=== PATIENT | female | born 1990 | race Caucasian/White ===

== ENCOUNTER 2016-07-30 14:21 | Emergency (ER) | payer OTHER ==
--- NOTE | 2016-07-30 14:34 | ER Document Report ---
ED Medical Screen (RME) - General Stated Complaint: DIZZINESS Time seen by provider: 14:31 Information source: Patient Notes: 26-year-old female with 2 episodes of syncope today at 1 PM. Prior to passing out in the shower and then after she got out of the shower she got nauseated and felt very hot and was dizzy and lightheaded. Started her menses today. Through the endometriosis and PCOS. She was on her way to see the urgent care for fever blisters on the lower lip. Nausea for 2 weeks with vomiting for 3 days. Diarrhea today. I have greeted and performed a rapid initial assessment of this patient. A comprehensive ED assessment, evaluation of the patient, analysis of test results , and completion of the medical decision making process will be conducted by additional ED providers. TRAVEL OUTSIDE OF THE [place] IN LAST 30 DAYS: No - Related Data Allergies/Adverse Reactions: No Known Allergies Allergy (Verified 07/30/16 14:30) Past Medical History - Past Medical History Cardiac Medical History: Reports: Hx Heart Murmur Pulmonary Medical History: Reports: Hx Asthma, Hx Bronchitis, Hx Pneumonia Neurological Medical History: Reports: Hx Migraine Renal/ Medical History: Reports: Hx Kidney Stones Musculoskeltal Medical History: Reports Hx Musculoskeletal Deformity Psychiatric Medical History: Reports: Hx Anxiety, Hx Bipolar Disorder, Hx Depression Past Surgical History: Reports: Hx Tonsillectomy - Immunizations Immunizations up to date: No Hx Diphtheria, Pertussis, Tetanus Vaccination: No Physical Exam - Vital signs Vitals: Temp Pulse Resp BP Pulse Ox 98.3 F 83 16 128/73 H 99 07/30/16 14:07/30/16 14:07/30/16 14:07/30/16 14:07/30/16 14:26 Course - Vital Signs Vital signs: Temp Pulse Resp BP Pulse Ox 98.3 F 83 16 128/73 H 99 07/30/16 14:26 07/30/16 14:26 07/30/16 14:07/30/16 14:07/30/16 14:26
[2016-07-30 15:21] LABS: ABSOLUTE BASOPHILS # (AUTO) 0.1 10^3/uL (0.0-0.2); ABSOLUTE EOSINOPHILS # (AUTO) 0.3 10^3/uL (0.0-0.6); ABSOLUTE LYMPHOCYTES (AUTO) 2.7 10^3/uL (0.5-4.7); ABSOLUTE MONOCYTES (AUTO) 0.7 10^3/uL (0.1-1.4); ABSOLUTE NEUT (AUTO) 7.1 10^3/uL (1.7-8.2); BASOPHILS % (AUTO) 0.6 % (0-2); EOSINOPHILS % (AUTO) 2.7 % (0-6); HEMATOCRIT 42.3 % (36.0-47.0); HEMOGLOBIN 14.7 g/dL (12.0-15.5); HGB HCT DIFFERENCE 1.8; LYMPHOCYTES % (AUTO) 24.6 % (13-45); MEAN CORPUSCULAR HEMOGLOBIN 32.1 pg (27.0-33.4); MEAN CORPUSCULAR HGB CONC 34.8 g/dL (32.0-36.0); MEAN CORPUSCULAR VOLUME 92 fl (80-97); MONOCYTES % (AUTO) 6.7 % (3-13); RED BLOOD COUNT 4.58 10^6/uL (3.72-5.28); SEGMENTED NEUTROPHILS % (AUTO) 65.4 % (42-78); WHITE BLOOD COUNT 10.9 10^3/uL (4.0-10.5)
[2016-07-30 15:28] LABS: APPEARANCE,URINE SLIGHTLY-CLOUDY; BILIRUBIN,URINE NEGATIVE (NEGATIVE); GLUCOSE, URINE NEGATIVE (NEGATIVE); KETONES,URINE NEGATIVE (NEGATIVE); LEUKOCYTE ESTERASE,URINE NEGATIVE (NEGATIVE); NITRITE,URINE NEGATIVE (NEGATIVE); PROTEIN,URINE NEGATIVE (NEGATIVE); URINE SPECIFIC GRAVITY 1.018; UROBILINOGEN,URINE NEGATIVE mg/dL (<2.0)
[2016-07-30 15:42] LABS: ALANINE AMINOTRANSFERASE 28 U/L (9-52); ALBUMIN 4.7 g/dL (3.5-5.0); ALKALINE PHOSPHATASE 74 U/L (38-126); ANION GAP 12 (5-19); ASPARTATE AMINO TRANSFERASE 18 U/L (14-36); BILIRUBIN,TOTAL 0.5 mg/dL (0.2-1.3); BLOOD UREA NITROGEN 9 mg/dL (7-20); CALCIUM 10.1 mg/dL (8.4-10.2); CARBON DIOXIDE 27 mmol/L (22-30); CHLORIDE 103 mmol/L (98-107); CREATINE KINASE 56 U/L (30-135); CREATININE RESULT 0.66 mg/dL (0.52-1.25); GLUCOSE 92 mg/dL (75-110); POTASSIUM 4.7 mmol/L (3.6-5.0); SODIUM 142.1 mmol/L (137-145); TOTAL PROTEIN 7.7 g/dL (6.3-8.2)
[2016-07-30 15:58] LABS: CREATINE KINASE MB < 0.22 ng/mL (<4.55); TROPONIN I < 0.012 ng/mL
--- NOTE | 2016-07-30 17:34 | ER Document Report ---
ED General - General Chief Complaint: Syncope Stated Complaint: DIZZINESS Mode of Arrival: Ambulatory Information source: Patient Notes: 26-year-old female presents with complaints of dizziness and syncope. Patient notes she passed out twice. We'll times while standing. Patient notes she's been feeling ill for the past week and half, was diagnosed as the flu has been having nausea and vomiting with diarrhea. Patient denies any pain prior to this episode denies any shortness of breath chest pain currently. Patient denies any other concerns at this time except for fever blisters of her lower lip TRAVEL OUTSIDE OF THE [place] IN LAST 30 DAYS: No - HPI Onset: Just prior to arrival Onset/Duration: Sudden Quality of pain: Burning Severity: Mild Pain Level: 1 Associated symptoms: Other Exacerbated by: Denies Relieved by: Denies Similar symptoms previously: No Recently seen / treated by doctor: No - Related Data Allergies/Adverse Reactions: No Known Allergies Allergy (Verified 07/30/16 14:30) Past Medical History - General Information source: Patient - Social History Smoking Status: Current Every Day Smoker Cigarette use (# per day): Yes Chew tobacco use (# tins/day): No Smoking Education Provided: No Frequency of alcohol use: None Family History: CAD, Hyperlipidemia, Hypertension, Malignancy, Thyroid Disfunction Patient has suicidal ideation: No Patient has homicidal ideation: No - Past Medical History Cardiac Medical History: Reports: Hx Heart Murmur Pulmonary Medical History: Reports: Hx Asthma, Hx Bronchitis, Hx Pneumonia Neurological Medical History: Reports: Hx Migraine Renal/ Medical History: Reports: Hx Kidney Stones. Denies: Hx Peritoneal Dialysis Musculoskeltal Medical History: Reports Hx Musculoskeletal Deformity Psychiatric Medical History: Reports: Hx Anxiety, Hx Bipolar Disorder, Hx Depression Past Surgical History: Reports: Hx Tonsillectomy - Immunizations Immunizations up to date: No Hx Diphtheria, Pertussis, Tetanus Vaccination: No Review of Systems - Review of Systems Notes: REVIEW OF SYSTEMS: CONSTITUTIONAL : Denies fever, chills, or sweats. Denies recent illness. EENT: Lip pain CARDIOVASCULAR: Denies chest pain. Denies palpitations or racing or irregular heart beat. Denies ankle edema. RESPIRATORY: Denies cough, cold, or chest congestion. Denies shortness of breath, difficulty breathing, or wheezing. GASTROINTESTINAL: Denies abdominal pain or distention. Denies nausea, vomiting , or diarrhea. Denies blood in vomitus, stools, or per rectum. Denies black, tarry stools. Denies constipation. GENITOURINARY: Denies difficulty urinating, painful urination, burning, frequency, blood in urine, or discharge. FEMALE GENITOURINARY: Denies vaginal bleeding, heavy or abnormal periods, irregular periods. Denies vaginal discharge or odor. MUSCULOSKELETAL: Denies back or neck pain or stiffness. Denies joint pain or swelling. SKIN: Denies rash, lesions or sores. HEMATOLOGIC : Denies easy bruising or bleeding. LYMPHATIC: Denies swollen, enlarged glands. NEUROLOGICAL: Syncope PSYCHIATRIC: Denies anxiety or stress. Denies depression, suicidal ideation, or homicidal ideation. ALL OTHER SYSTEMS REVIEWED AND NEGATIVE. Dictation was performed using [employer] voice recognition software PHYSICAL EXAMINATION: GENERAL: Well-appearing, well-nourished and in no acute distress. HEAD: Atraumatic, normocephalic. EYES: Pupils equal round and reactive to light, extraocular movements intact, conjunctiva are normal. ENT: Lower lip swelling Nares patent, oropharynx clear without exudates. Moist mucous membranes. NECK: Normal range of motion, supple without lymphadenopathy LUNGS: Breath sounds clear to auscultation bilaterally and equal. No wheezes rales or rhonchi. HEART: Regular rate and rhythm without murmurs ABDOMEN: Soft, nontender, nondistended abdomen. No guarding, no rebound. No masses appreciated. Female : deferred Musculoskeletal: Mild right anterior thigh NEUROLOGICAL: Cranial nerves grossly intact. Normal speech, normal gait. Normal sensory, motor exams PSYCH: Normal mood, normal affect. SKIN: Warm, Dry, normal turgor, no rashes or lesions noted. Physical Exam - Vital signs Vitals: Temp Pulse Resp BP Pulse Ox 98.3 F 83 16 128/73 H 99 07/30/16 14:26 07/30/16 14:26 07/30/16 14:26 07/30/16 14:26 07/30/16 14:26 Course - Re-evaluation Re-evalutation: 07/30/16 17:31 patient was evaluated and is in no distress, lab work note no significant abnormality, patient will be given Valtrex for her fever blisters 07/30/16 17:33 After performing a Medical Screening Examination, I estimate there is LOW risk for INTRACRANIAL HEMORRHAGE, ISCHEMIC CVA, MALIGNANT DYSRHYTHMIA, ACUTE CORONARY SYNDROME, MENINGITIS, PULMONARY EMBOLISM, or SEPSIS thus I consider the discharge disposition reasonable. The patient and I have discussed the diagnosis and risks, and we agree with discharging home with close follow-up with the understanding that symptoms and presentations can change. We also discussed returning to the Emergency Department immediately if new or worsening symptoms occur. We have discussed the symptoms which are most concerning (e.g., changing or worsening pain, weakness, vomiting, fever) that necessitate immediate return. - Vital Signs Vital signs: Temp Pulse Resp BP Pulse Ox 98.3 F 83 16 128/73 H 99 07/30/16 14:26 07/30/16 14:26 07/30/16 14:26 07/30/16 14:26 07/30/16 14:26 - Laboratory Result Diagrams: 07/30/16 14:55 07/30/16 14:55 Laboratory results interpreted by me: 07/30/16 07/30/16 14:55 14:55 WBC 10.9 H Urine Blood MODERATE H - EKG Interpretation by [place] EKG shows normal: Sinus rhythm, [place], Intervals, QRS Complexes Discharge - Discharge Clinical Impression: Syncope and collapse, Fever blister Condition: Stable Disposition: HOME, SELF-CARE Instructions: Syncopal Episode ([facility]) Additional Instructions: Follow up with your physician tomorrow for further care or return to the ED IMMEDIATELY if symptoms worsen or new concerns occur Prescriptions: Lidocaine [Topicaine 5] 10 gm TP ASDIR PRN #1 gel..gram. PRN Reason: Valacyclovir HCl [Valtrex 500 Mg Tablet] 1,000 mg PO BID #20 tablet
[2016-07-30 18:28] VITALS: BP 128/72
--- NOTE | 2016-07-30 22:44 | EKG REPORT ---
SEVERITY:- NORMAL ECG - SINUS RHYTHM : Confirmed by: Delvin Schreiber 30-Jul-2016 22:43:24
== END 2016-07-30 18:25 | disposition home or self-care (01) ==
LOC: ER 14:21
DX: R55 Syncope and collapse (principal); B00.1 Herpesviral vesicular dermatitis; F17.210 Nicotine dependence, cigarettes, uncomplicated; J45.909 Unspecified asthma, uncomplicated
CPT/HCPCS: 36415; 80053; 81001; 82550; 82553; 84484; 84703; 85025; 93005; 93010; 99284

== ENCOUNTER 2016-09-03 02:21 | Emergency (ER) | payer OTHER, MEDICAID ==
--- NOTE | 2016-09-03 04:24 | ER Document Report ---
ED GI/ - General Chief Complaint: Abdominal Pain Stated Complaint: ABDOMINAL PAIN Time seen by provider: 04:20 Notes: Patient is a 26-year-old female, at 5 weeks gestation by last menstrual period, that comes emergency department for chief complaint of 2 days of intermittent right-sided abdominal pain in the midabdomen. She denies flank pain, vomiting, dysuria, vaginal discharge or bleeding, injury. She states she is very distended for only being 5 weeks along. She reports normal bowel movements. She states she is staying very hydrated. She is taking vitamins. She denies any medical history other than a spontaneous miscarriage with her second . TRAVEL OUTSIDE OF THE [place] IN LAST 30 DAYS: No - Related Data Allergies/Adverse Reactions: No Known Allergies Allergy (Verified 07/30/16 14:30) Past Medical History - General Information source: Patient - Social History Smoking Status: Never Smoker Frequency of alcohol use: None Drug Abuse: None Lives with: Family Family History: CAD, Hyperlipidemia, Hypertension, Malignancy, Thyroid Disfunction - Past Medical History Cardiac Medical History: Reports: Hx Heart Murmur Pulmonary Medical History: Reports: Hx Asthma, Hx Bronchitis, Hx Pneumonia Neurological Medical History: Reports: Hx Migraine Renal/ Medical History: Reports: Hx Kidney Stones. Denies: Hx Peritoneal Dialysis Musculoskeltal Medical History: Reports Hx Musculoskeletal Deformity Psychiatric Medical History: Reports: Hx Anxiety, Hx Bipolar Disorder, Hx Depression Past Surgical History: Reports: Hx Tonsillectomy - Immunizations Immunizations up to date: No Hx Diphtheria, Pertussis, Tetanus Vaccination: No Review of Systems - Review of Systems Constitutional: No symptoms reported EENT: No symptoms reported Cardiovascular: No symptoms reported Respiratory: No symptoms reported Gastrointestinal: See HPI Genitourinary: See HPI Female Genitourinary: See HPI Musculoskeletal: No symptoms reported Skin: No symptoms reported Hematologic/Lymphatic: No symptoms reported Neurological/Psychological: No symptoms reported Physical Exam - Vital signs Vitals: Temp Pulse Resp BP Pulse Ox 98.3 F 98 16 113/76 99 09/03/16 02:34 09/03/16 02:34 09/03/16 02:34 09/03/16 02:34 09/03/16 02:34 Interpretation: Normal - General General appearance: Appears well, Alert In distress: None - HEENT Head: Normocephalic, Atraumatic Eyes: Normal Pupils: PERRL - Respiratory Respiratory status: No respiratory distress Chest status: Nontender Breath sounds: Normal Chest palpation: Normal - Cardiovascular Rhythm: Regular Heart sounds: Normal auscultation Murmur: No - Abdominal Inspection: Normal Distension: Distended - Questionable mild distention Bowel sounds: Normal Tenderness: Nontender. No: Tender, Guarding Organomegaly: No organomegaly - Back Back: Normal, Nontender - Extremities General upper extremity: Normal inspection, Nontender, Normal color, Normal ROM , Normal temperature General lower extremity: Normal inspection, Nontender, Normal color, Normal ROM , Normal temperature, Normal weight bearing. No: Angel's sign - Neurological Neuro grossly intact: Yes Cognition: Normal Orientation: AAOx4 Madyson Coma Scale Eye Opening: Spontaneous Madyson Coma Scale Verbal: Oriented Madyson Coma Scale Motor: Obeys Commands Madyson Coma Scale Total: 15 Speech: Normal Motor strength normal: LUE, RUE, LLE, RLE Sensory: Normal - Psychological Associated symptoms: Normal affect, Normal mood - Skin Skin Temperature: Warm Skin Moisture: Dry Skin Color: Normal Course - Re-evaluation Re-evalutation: CBC unremarkable, urinalysis unremarkable, ultrasound showing gestational sac consistent with 5 weeks 1 day intrauterine , hCG is low and consistent. Patient with no vaginal bleeding, denies any current pain, denies any current symptoms. Patient given details, recommended having close follow- up of hCG lab testing, recommended follow up with COMPUTER SYSTEMS DESIGN ANALYST, discussed return precautions, patient states satisfaction and agreement. - Vital Signs Vital signs: Temp Pulse Resp BP Pulse Ox 98.7 F 78 15 126/63 H 98 09/03/16 06:19 09/03/16 06:19 09/03/16 06:19 09/03/16 06:19 09/03/16 06:19 - Laboratory Result Diagrams: 09/03/16 04:35 09/03/16 04:35 Laboratory results interpreted by me: 09/03/16 09/03/16 04:35 04:35 WBC 11.2 H Beta HCG, Quant 786.11 H Discharge - Discharge Clinical Impression: Abdominal pain Qualifiers: Abdominal location: unspecified location Qualified Code(s): R10.9 - Unspecified abdominal pain Condition: Stable Disposition: HOME, SELF-CARE Additional Instructions: Ultrasound shows a gestational sac measuring 5 weeks 1 day. Recommendation is to have a follow-up testing visit in 2-3 days. No abnormality seen on imaging and laboratory workup. Abdominal distention could be related to stool, I recommend taking it stool softener for a couple of days, eat plenty of fiber, continue good hydration. Examination and workup did not indicate a surgical abnormality at this time, if you develop returned or worsening abdominal pain please return to the emergency department. Return for any other concerning symptoms. Follow-up with primary care. Referrals: LESLIE BURDICK, [Primary Care Provider] - Follow up as needed
[2016-09-03 04:55] LABS: ABSOLUTE BASOPHILS # (AUTO) 0.1 10^3/uL (0.0-0.2); ABSOLUTE EOSINOPHILS # (AUTO) 0.3 10^3/uL (0.0-0.6); ABSOLUTE LYMPHOCYTES (AUTO) 4.2 10^3/uL (0.5-4.7); ABSOLUTE MONOCYTES (AUTO) 0.9 10^3/uL (0.1-1.4); ABSOLUTE NEUT (AUTO) 5.8 10^3/uL (1.7-8.2); BASOPHILS % (AUTO) 0.6 % (0-2); EOSINOPHILS % (AUTO) 2.6 % (0-6); HEMATOCRIT 38.5 % (36.0-47.0); HEMOGLOBIN 13.4 g/dL (12.0-15.5); HGB HCT DIFFERENCE 1.7; LYMPHOCYTES % (AUTO) 37.4 % (13-45); MEAN CORPUSCULAR HEMOGLOBIN 32.1 pg (27.0-33.4); MEAN CORPUSCULAR HGB CONC 34.9 g/dL (32.0-36.0); MEAN CORPUSCULAR VOLUME 92 fl (80-97); MONOCYTES % (AUTO) 8.2 % (3-13); RED BLOOD COUNT 4.18 10^6/uL (3.72-5.28); RED CELL DISTRIBUTION WIDTH 13.1 % (11.5-14.0); SEGMENTED NEUTROPHILS % (AUTO) 51.2 % (42-78); WHITE BLOOD COUNT 11.2 10^3/uL (4.0-10.5)
[2016-09-03 05:05] LABS: APPEARANCE,URINE CLEAR; BILIRUBIN,URINE NEGATIVE (NEGATIVE); GLUCOSE, URINE NEGATIVE (NEGATIVE); KETONES,URINE NEGATIVE (NEGATIVE); LEUKOCYTE ESTERASE,URINE NEGATIVE (NEGATIVE); NITRITE,URINE NEGATIVE (NEGATIVE); PROTEIN,URINE NEGATIVE (NEGATIVE); URINE SPECIFIC GRAVITY 1.001; UROBILINOGEN,URINE NEGATIVE mg/dL (<2.0)
[2016-09-03 05:16] LABS: ALANINE AMINOTRANSFERASE 29 U/L (9-52); ALBUMIN 4.5 g/dL (3.5-5.0); ALKALINE PHOSPHATASE 73 U/L (38-126); ANION GAP 13 (5-19); ASPARTATE AMINO TRANSFERASE 17 U/L (14-36); BILIRUBIN,DIRECT 0.2 mg/dL (0.0-0.4); BILIRUBIN,TOTAL 0.5 mg/dL (0.2-1.3); BLOOD UREA NITROGEN 8 mg/dL (7-20); CALCIUM 10.1 mg/dL (8.4-10.2); CARBON DIOXIDE 23 mmol/L (22-30); CHLORIDE 106 mmol/L (98-107); CREATININE RESULT 0.63 mg/dL (0.52-1.25); GLUCOSE 101 mg/dL (75-110); POTASSIUM 3.9 mmol/L (3.6-5.0); SODIUM 141.5 mmol/L (137-145); TOTAL PROTEIN 7.1 g/dL (6.3-8.2)
[2016-09-03 06:20] VITALS: BP 126/63
== END 2016-09-03 06:20 | disposition home or self-care (01) ==
LOC: ER 02:21
DX: O26.891 Other specified pregnancy related conditions, first trimester (principal); R10.9 Unspecified abdominal pain; O99.511 Diseases of the respiratory system complicating pregnancy, first trimester; J45.909 Unspecified asthma, uncomplicated; Z3A.01 Less than 8 weeks gestation of pregnancy; Z79.899 Other long term (current) drug therapy; Z87.59 Personal history of other complications of pregnancy, childbirth and the puerperium; Z87.442 Personal history of urinary calculi
CPT/HCPCS: 36415; 76817; 80053; 81001; 84702; 85025; 93976; 99284

== ENCOUNTER → 2016-11-21 | Outpatient (CLI) | payer OTHER, MEDICAID ==
--- NOTE | 2016-11-21 21:31 | EKG REPORT ---
SEVERITY:- NORMAL ECG - SINUS RHYTHM : Confirmed by: Delvin Schreiber 21-Nov-2016 21:30:47
== END ==
LOC: RT 15:20
PROVIDERS: ATTEND Advanced Practice Midwife
DX: R55 Syncope and collapse (principal)
CPT/HCPCS: 93005; 93010; 93041; 93042

== ENCOUNTER 2016-12-22 20:12 | Outpatient (CLI) | payer OTHER, MEDICAID ==
[2016-12-22 20:58] LABS: APPEARANCE,URINE CLEAR; BILIRUBIN,URINE NEGATIVE (NEGATIVE); GLUCOSE, URINE NEGATIVE (NEGATIVE); KETONES,URINE NEGATIVE (NEGATIVE); LEUKOCYTE ESTERASE,URINE NEGATIVE (NEGATIVE); NITRITE,URINE NEGATIVE (NEGATIVE); PROTEIN,URINE NEGATIVE (NEGATIVE); URINE SPECIFIC GRAVITY 1.005; UROBILINOGEN,URINE NEGATIVE mg/dL (<2.0)
[2016-12-22 21:09] LABS: URINE BARBITURATES SCREEN NEGATIVE; URINE METHADONE SCREEN NEGATIVE; URINE OPIATES LOW NEGATIVE; URINE PHENCYCLIDINE SCREEN NEGATIVE
--- NOTE | 2016-12-22 22:56 | RADIOLOGY REPORT (SQ) ---
EXAM DESCRIPTION: U/S OB LIMITED COMPLETED DATE/TIME: 12/22/2016 10:20 pm REASON FOR STUDY: placental status and location, fell COMPARISON: None. TECHNIQUE: Limited transabdominal grayscale ultrasound for evaluation of specific requested obstetri jan parameters. LIMITATIONS: None. FINDINGS: Posterior placenta. No abnormality identified. FHR: 141 beats per minute. PRESENTATION: Cephalic. OTHER: No other significant findings. IMPRESSION: LIMITED OBSTETRICAL ULTRASOUND WITH MEASURED PARAMETERS DELINEATED ABOVE. Trimester of : Second trimester - 13 weeks 1 day to 27 weeks 6 days. TECHNICAL DOCUMENTATION: JOB ID: [id number] [email or web address]- All Rights Reserved
[2016-12-22] MEDS ORDERED: MAG HYDROX/AL HYDROX/SIMETH SUSP 30 ML UDCUP ONE (22:59)
[2016-12-22] MEDS ORDERED: MAG HYDROX/AL HYDROX/SIMETH SUSP 30 ML UDCUP PO ONE (23:00)
[2016-12-22 23:28] LABS: ABSOLUTE EOSINOPHILS # (AUTO) 0.2 10^3/uL (0.0-0.6); ABSOLUTE LYMPHOCYTES (AUTO) 2.7 10^3/uL (0.5-4.7); ABSOLUTE MONOCYTES (AUTO) 0.8 10^3/uL (0.1-1.4); ABSOLUTE NEUT (AUTO) 6.6 10^3/uL (1.7-8.2); BASOPHILS % (AUTO) 0.2 % (0-2); EOSINOPHILS % (AUTO) 2.1 % (0-6); HEMATOCRIT 33.7 % (36.0-47.0); HEMOGLOBIN 11.8 g/dL (12.0-15.5); HGB HCT DIFFERENCE 1.7; LYMPHOCYTES % (AUTO) 26.4 % (13-45); MEAN CORPUSCULAR HEMOGLOBIN 32.1 pg (27.0-33.4); MEAN CORPUSCULAR HGB CONC 35.1 g/dL (32.0-36.0); MEAN CORPUSCULAR VOLUME 91 fl (80-97); MONOCYTES % (AUTO) 7.4 % (3-13); RED BLOOD COUNT 3.69 10^6/uL (3.72-5.28); RED CELL DISTRIBUTION WIDTH 13.2 % (11.5-14.0); SEGMENTED NEUTROPHILS % (AUTO) 63.9 % (42-78); WHITE BLOOD COUNT 10.4 10^3/uL (4.0-10.5)
[2016-12-22] MEDS ORDERED: IBUPROFEN 800 MG TABLET PO ONE (23:44)
[2016-12-22] MEDS ORDERED: CYCLOBENZAPRINE HCL 10 MG TABLET PO ONE (23:44)
[2016-12-22] MEDS ORDERED: IBUPROFEN 800 MG TABLET ONE (23:49)
[2016-12-22] MEDS ORDERED: CYCLOBENZAPRINE HCL 10 MG TABLET ONE (23:49)
[2016-12-23 02:29] LABS: TOTAL RBC COUNT 0; VOL OF FETOMATERNAL HEMORRHAGE 0 ML (0)
[2016-12-23 02:34] LABS: TYPE IN FILE? TYPE IN FILE
== END 2016-12-23 00:02 | disposition home or self-care (01) ==
LOC: LC 20:12
PROVIDERS: ATTEND Specialist
PROC: 4A1HXCZ Monitoring of Products of Conception, Cardiac Rate, External Approach (ICD-10-PCS; principal; 2016-12-22)
DX: O47.02 False labor before 37 completed weeks of gestation, second trimester (principal); O99.89 Other specified diseases and conditions complicating pregnancy, childbirth and the puerperium; M54.9 Dorsalgia, unspecified; Z3A.20 20 weeks gestation of pregnancy
CPT/HCPCS: 36415; 76815; 80307; 81001; 85025; 85362; 85384; 85460; 86850; 86900; 86901

== ENCOUNTER 2017-03-19 21:00 | Outpatient (CLI) | payer OTHER, MEDICAID ==
[2017-03-19 22:23] LABS: AMNISURE (ROM) NEGATIVE (NEGATIVE); APPEARANCE,URINE CLEAR; BILIRUBIN,URINE NEGATIVE (NEGATIVE); GLUCOSE, URINE NEGATIVE (NEGATIVE); KETONES,URINE NEGATIVE (NEGATIVE); LEUKOCYTE ESTERASE,URINE TRACE (NEGATIVE); NITRITE,URINE NEGATIVE (NEGATIVE); PROTEIN,URINE NEGATIVE (NEGATIVE); URINE SPECIFIC GRAVITY 1.003; UROBILINOGEN,URINE NEGATIVE mg/dL (<2.0)
[2017-03-19 22:32] LABS: URINE BARBITURATES SCREEN NEGATIVE; URINE METHADONE SCREEN NEGATIVE; URINE OPIATES LOW NEGATIVE; URINE PHENCYCLIDINE SCREEN NEGATIVE
--- NOTE | 2017-03-19 22:43 | Non Stress Test Report ---
Non Stress Test Datetime Report Generated by CPN: 03/19/2017 22:43 DEMOGRAPHIC Test Number: 1 EGA NST: 33.1 INDICATION Indication for Study: Ordered by Provider MONITORING Monitor Explained: Monitor Explained; Test Explained; Patient Verbalized Understanding Time on Monitor: 03/19/2017 21:30 Time off Monitor: 03/19/2017 22:30 NST Duration: 60 NST INTERVENTIONS NST Interventions: PO Hydration; Reposition Patient Physician Notified NST: Gabino BABY A: [id number] BABY A Movement : Present Contraction Frequency : x1 FHR Baseline : 145 Accelerations : 15X15 Decelerations : None Variability : Moderate 6-25bpm NST Review: Meets Criteria for Reactive NST NST Review and Verified By : Matty Vela RN NST Results: Reactive NST REPORT Report Trigger: Send Report
== END 2017-03-19 22:40 | disposition home or self-care (01) ==
LOC: LC 21:00 → EDSTATUS 21:50 → LC 22:40
PROVIDERS: ATTEND Obstetrics & Gynecology
PROC: 4A1HXCZ Monitoring of Products of Conception, Cardiac Rate, External Approach (ICD-10-PCS; principal; 2017-03-19)
DX: O47.03 False labor before 37 completed weeks of gestation, third trimester (principal); Z3A.33 33 weeks gestation of pregnancy
CPT/HCPCS: 59025; 80307; 81001; 84112

== ENCOUNTER 2017-04-11 23:36 | Outpatient (CLI) | payer OTHER, MEDICAID ==
[2017-04-12 00:19] LABS: APPEARANCE,URINE CLEAR; BILIRUBIN,URINE NEGATIVE (NEGATIVE); GLUCOSE, URINE NEGATIVE (NEGATIVE); KETONES,URINE NEGATIVE (NEGATIVE); LEUKOCYTE ESTERASE,URINE TRACE (NEGATIVE); NITRITE,URINE NEGATIVE (NEGATIVE); PROTEIN,URINE NEGATIVE (NEGATIVE); UROBILINOGEN,URINE NEGATIVE mg/dL (<2.0)
[2017-04-12 00:32] LABS: URINE BARBITURATES SCREEN NEGATIVE; URINE METHADONE SCREEN NEGATIVE; URINE OPIATES LOW NEGATIVE; URINE PHENCYCLIDINE SCREEN NEGATIVE
[2017-04-12] MEDS ORDERED: ONDANSETRON HCL INJ/PF 4 MG/2 ML SDV ONE (00:45)
== END 2017-04-12 01:01 | disposition home or self-care (01) ==
LOC: LC 23:36
PROVIDERS: ATTEND Obstetrics & Gynecology Gynecology
DX: O47.03 False labor before 37 completed weeks of gestation, third trimester (principal); Z3A.36 36 weeks gestation of pregnancy
CPT/HCPCS: 81001; 80307; J2405

== ENCOUNTER 2017-04-16 23:15 | Outpatient (CLI) | payer OTHER, MEDICAID ==
--- NOTE | 2017-04-16 23:25 | Non Stress Test Report ---
Non Stress Test Datetime Report Generated by CPN: 04/16/2017 23:25 DEMOGRAPHIC EGA NST: 36.3 INDICATION Indication for Study: Ordered by Provider; Other Indication for Study (NST) Other: LC MONITORING Monitor Explained: Monitor Explained; Test Explained; Patient Verbalized Understanding Time on Monitor: 04/11/2017 23:51 Time off Monitor: 04/12/2017 00:50 NST Duration: 59 NST INTERVENTIONS NST Interventions: PO Hydration; Reposition Patient BABY A: [id number] BABY A Contraction Frequency : 3-9 FHR Baseline : 145 Accelerations : 15X15 Decelerations : None Variability : Moderate 6-25bpm NST Review: Meets Criteria for Reactive NST NST Review and Verified By : VENKAT Cortez NST REPORT Report Trigger: Send Report
[2017-04-16 23:39] LABS: APPEARANCE,URINE CLEAR; BILIRUBIN,URINE NEGATIVE (NEGATIVE); GLUCOSE, URINE NEGATIVE (NEGATIVE); KETONES,URINE TRACE mg/dL (NEGATIVE); LEUKOCYTE ESTERASE,URINE NEGATIVE (NEGATIVE); NITRITE,URINE NEGATIVE (NEGATIVE); PROTEIN,URINE NEGATIVE (NEGATIVE); URINE SPECIFIC GRAVITY 1.011; UROBILINOGEN,URINE NEGATIVE mg/dL (<2.0)
[2017-04-16 23:55] LABS: URINE BARBITURATES SCREEN NEGATIVE; URINE METHADONE SCREEN NEGATIVE; URINE OPIATES LOW NEGATIVE; URINE PHENCYCLIDINE SCREEN NEGATIVE
--- NOTE | 2017-04-17 01:01 | Non Stress Test Report ---
Non Stress Test Datetime Report Generated by CPN: 04/17/2017 01:01 DEMOGRAPHIC EGA NST: 37.1 INDICATION Indication for Study: Ordered by Provider MONITORING Monitor Explained: Monitor Explained; Test Explained; Patient Verbalized Understanding Time on Monitor: 04/16/2017 23:25 Time off Monitor: 04/16/2017 23:47 NST Duration: 22 NST INTERVENTIONS NST Interventions: PO Hydration Physician Notified NST: Dr. Gabino BABY A Movement : Present Contraction Frequency : 3-7 FHR Baseline : 140 Accelerations : 15X15 Decelerations : None Variability : Moderate 6-25bpm NST Review: Meets Criteria for Reactive NST NST Review and Verified By : VENKAT Smith Results: Reactive NST REPORT Report Trigger: Send Report
== END 2017-04-17 01:10 | disposition home or self-care (01) ==
LOC: LC 23:15
PROVIDERS: ATTEND Obstetrics & Gynecology
PROC: 4A1HXCZ Monitoring of Products of Conception, Cardiac Rate, External Approach (ICD-10-PCS; principal; 2017-04-16)
DX: Z34.93 Encounter for supervision of normal pregnancy, unspecified, third trimester (principal)
CPT/HCPCS: 59025; 80307; 81005

== ENCOUNTER 2017-04-28 20:36 | Outpatient (CLI) | payer OTHER, MEDICAID ==
[2017-04-28 21:15] LABS: APPEARANCE,URINE CLEAR; BILIRUBIN,URINE NEGATIVE (NEGATIVE); GLUCOSE, URINE NEGATIVE (NEGATIVE); KETONES,URINE NEGATIVE (NEGATIVE); LEUKOCYTE ESTERASE,URINE NEGATIVE (NEGATIVE); NITRITE,URINE NEGATIVE (NEGATIVE); PROTEIN,URINE NEGATIVE (NEGATIVE); URINE SPECIFIC GRAVITY 1.012; UROBILINOGEN,URINE NEGATIVE mg/dL (<2.0)
[2017-04-28 21:28] LABS: AMNISURE (ROM) NEGATIVE (NEGATIVE)
[2017-04-28 21:35] LABS: URINE BARBITURATES SCREEN NEGATIVE; URINE METHADONE SCREEN NEGATIVE; URINE OPIATES LOW NEGATIVE; URINE PHENCYCLIDINE SCREEN NEGATIVE
[2017-04-28] MEDS ORDERED: HYDROXYZINE PAMOATE 50 MG CAPSULE PO ONE (21:59)
[2017-04-28] MEDS ORDERED: HYDROXYZINE PAMOATE 50 MG CAPSULE ONE (22:01)
--- NOTE | 2017-04-28 22:18 | Non Stress Test Report ---
Non Stress Test Datetime Report Generated by CPN: 04/28/2017 22:18 DEMOGRAPHIC EGA NST: 38.6 INDICATION Indication for Study: Ordered by Provider VITAL SIGNS Temperature - NST: 98.2 Pulse - NST: 90 RESP - NST: 14 NBPSYS NST: 121 NBPDIA NST: 75 MONITORING Monitor Explained: Monitor Explained; Test Explained; Patient Verbalized Understanding Time on Monitor: 04/28/2017 20:55 Time off Monitor: 04/28/2017 22:03 NST Duration: 68 NST INTERVENTIONS NST Interventions: PO Hydration Physician Notified NST: Dr Simon BABY A: [id number] BABY A Movement : Present Contraction Frequency : occas FHR Baseline : 135 Accelerations : 15X15 Variability : Moderate 6-25bpm NST Review: Meets Criteria for Reactive NST NST Review and Verified By : Alo Ward RN NST Results: Reactive NST REPORT Report Trigger: Send Report
== END 2017-04-28 22:13 | disposition home or self-care (01) ==
LOC: LC 20:36
PROVIDERS: ATTEND Specialist
PROC: 4A1HXCZ Monitoring of Products of Conception, Cardiac Rate, External Approach (ICD-10-PCS; principal; 2017-04-28)
DX: O47.1 False labor at or after 37 completed weeks of gestation (principal); Z3A.38 38 weeks gestation of pregnancy
CPT/HCPCS: 59025; 80307; 81005; 84112

== ENCOUNTER 2017-05-01 17:27 | Outpatient (CLI) | payer OTHER, MEDICAID ==
[2017-05-01 18:10] LABS: APPEARANCE,URINE SLIGHTLY-CLOUDY; BILIRUBIN,URINE NEGATIVE (NEGATIVE); GLUCOSE, URINE NEGATIVE (NEGATIVE); KETONES,URINE NEGATIVE (NEGATIVE); LEUKOCYTE ESTERASE,URINE TRACE (NEGATIVE); NITRITE,URINE NEGATIVE (NEGATIVE); PROTEIN,URINE NEGATIVE (NEGATIVE); URINE SPECIFIC GRAVITY 1.021; UROBILINOGEN,URINE NEGATIVE mg/dL (<2.0)
[2017-05-01 18:25] LABS: URINE BARBITURATES SCREEN NEGATIVE; URINE METHADONE SCREEN NEGATIVE; URINE OPIATES LOW NEGATIVE; URINE PHENCYCLIDINE SCREEN NEGATIVE
--- NOTE | 2017-05-01 18:51 | Non Stress Test Report ---
Non Stress Test Datetime Report Generated by CPN: 05/01/2017 18:50 DEMOGRAPHIC EGA NST: 39.2 INDICATION Indication for Study: Other Indication for Study (NST) Other: visit MONITORING Monitor Explained: Monitor Explained; Test Explained; Patient Verbalized Understanding Time on Monitor: 05/01/2017 17:48 Time off Monitor: 05/01/2017 18:35 NST Duration: 47 NST INTERVENTIONS NST Interventions: PO Hydration Physician Notified NST: Dr. Carlisle BABY A: [id number] BABY A Movement : Present Contraction Frequency : 0 FHR Baseline : 145 Accelerations : 15X15 Variability : Moderate 6-25bpm NST Review: Meets Criteria for Reactive NST NST Review and Verified By : , RN NST Results: Reactive NST REPORT Report Trigger: Send Report
== END 2017-05-01 18:42 | disposition home or self-care (01) ==
LOC: LC 17:27
PROVIDERS: ATTEND Student in an Organized Health Care Education/Training Program
PROC: 4A1HXCZ Monitoring of Products of Conception, Cardiac Rate, External Approach (ICD-10-PCS; principal; 2017-05-01)
DX: Z34.93 Encounter for supervision of normal pregnancy, unspecified, third trimester (principal); Z3A.39 39 weeks gestation of pregnancy
CPT/HCPCS: 59025; 80307; 81005

== ENCOUNTER 2017-05-07 17:51 | Inpatient (IN) | payer OTHER, MEDICAID ==
[2017-05-07 18:27] LABS: APPEARANCE,URINE CLEAR; BILIRUBIN,URINE NEGATIVE (NEGATIVE); GLUCOSE, URINE NEGATIVE (NEGATIVE); KETONES,URINE NEGATIVE (NEGATIVE); LEUKOCYTE ESTERASE,URINE NEGATIVE (NEGATIVE); NITRITE,URINE NEGATIVE (NEGATIVE); PROTEIN,URINE NEGATIVE (NEGATIVE); URINE SPECIFIC GRAVITY 1.012; UROBILINOGEN,URINE NEGATIVE mg/dL (<2.0)
[2017-05-07 18:35] LABS: URINE BARBITURATES SCREEN NEGATIVE; URINE METHADONE SCREEN NEGATIVE; URINE OPIATES LOW NEGATIVE; URINE PHENCYCLIDINE SCREEN NEGATIVE
[2017-05-07 19:17] LABS: ABSOLUTE EOSINOPHILS # (AUTO) 0.1 10^3/uL (0.0-0.6); ABSOLUTE LYMPHOCYTES (AUTO) 2.5 10^3/uL (0.5-4.7); ABSOLUTE MONOCYTES (AUTO) 0.9 10^3/uL (0.1-1.4); ABSOLUTE NEUT (AUTO) 5.9 10^3/uL (1.7-8.2); BASOPHILS % (AUTO) 0.5 % (0-2); EOSINOPHILS % (AUTO) 1.1 % (0-6); HEMATOCRIT 35.2 % (36.0-47.0); HGB HCT DIFFERENCE 0.8; LYMPHOCYTES % (AUTO) 26.6 % (13-45); MEAN CORPUSCULAR HEMOGLOBIN 30.2 pg (27.0-33.4); MEAN CORPUSCULAR HGB CONC 33.9 g/dL (32.0-36.0); MEAN CORPUSCULAR VOLUME 89 fl (80-97); MONOCYTES % (AUTO) 9.5 % (3-13); RED BLOOD COUNT 3.97 10^6/uL (3.72-5.28); RED CELL DISTRIBUTION WIDTH 13.2 % (11.5-14.0); SEGMENTED NEUTROPHILS % (AUTO) 62.3 % (42-78); WHITE BLOOD COUNT 9.4 10^3/uL (4.0-10.5)
[2017-05-07] MEDS ORDERED: OXYTOCIN/NORMAL SALINE 20 UNIT/1,000 ML RTUINJ ONE (19:33)
[2017-05-07] MEDS ORDERED: MISOPROSTOL 0.2 MG TABLET ONE (19:33)
[2017-05-07] MEDS ORDERED: LIDOCAINE 1% INJ-PF (10 MG/ML) 30 ML SDV ONE (19:33)
[2017-05-07] MEDS ORDERED: MAG HYDROX/AL HYDROX/SIMETH SUSP 30 ML UDCUP PO ONE (19:45)
[2017-05-07] MEDS ORDERED: MAG HYDROX/AL HYDROX/SIMETH SUSP 30 ML UDCUP ONE (19:46)
[2017-05-07] MEDS ORDERED: RINGERS SOLUTION,LACTATED 1,000 ML IV PRN (19:47)
[2017-05-07] MEDS ORDERED: OXYTOCIN/NORMAL SALINE 20 UNIT/1,000 ML RTUINJ IV PRN ×2 (19:47→23:45)
[2017-05-07 20:15] LABS: ADD HIVPANEL? NO; HIV (1 AND 2) ANTIBODY NEGATIVE (NEGATIVE)
--- NOTE | 2017-05-07 21:39 | L&D Progress Notes ---
PROGRESS NOTES Datetime Report Generated by CPN: 05/07/2017 21:39 PROGRESS NOTE Impression: Normal Progression of Labor; Reassuring Heart Rate Procedures: Artificial ROM; Sterile Vag Exam Plan: Continue Present Management; Induction Informed Consent Obtained: Vaginal Delivery; Induction of Labor; Risks, Benefits and Alternatives Discussed Informed Consent Obtained: Vaginal Delivery; Induction of Labor; Risks, Benefits and Alternatives Discussed Vital Signs : Reviewed Comment: Pt having regular uterine ctx on pitocin. Cvx 4-5/75/-1. AROM with clear fluid. pt reports feeling ok but ctx getting stronger. Anticipate . REassuring FWB VAGINAL EXAM Dilatation: 5 Dilatation: 4 Effacement: 75 Effacement: 70 Station: -1 Station: -2 Contractions: irreg MEMBRANES Membranes: Intact FETUS A FHR - Baseline: 150 Monitoring: External US Variability: Moderate 6-25bpm Accelerations: 15X15 Decelerations: None FHR Category: Category I Presentation: Vertex SIGNATURE SIGNATURE: [id number];[id number] SIGNATURE: [id number] SIGNATURE: [id number] SIGNATURE: [id number] SIGNATURE: [id number] SIGNATURE: [id number] Signature: with User ID: [email or web address]
[2017-05-07] MEDS ORDERED: BUPIVACAINE HCL 0.25 % INJ/PF (2.5 MG/1 ML) 30 ML VIAL ONE (21:48)
[2017-05-07] MEDS ORDERED: FENTANYL/BUPIVACAINE/NS/PF 200 MCG/100 ML RTUINJ EPI ONE (21:48)
[2017-05-07] MEDS ORDERED: EPHEDRINE SULFATE INJ 50 MG/1 ML AMPULE ONE (21:48)
[2017-05-07] MEDS ORDERED: FENTANYL CITRATE INJ/PF 100 MCG/2 ML AMPUL ONE (21:49)
[2017-05-07] MEDS ORDERED: PHENYLEPHRINE HCL INJ/PF 10 MG/1 ML SDV ONE (21:50)
[2017-05-07] MEDS ORDERED: ACETAMINOPHEN 650 MG SUPP.RECT PR PRN (23:45)
[2017-05-07] MEDS ORDERED: GLYCERIN/WITCH HAZEL LEAF 1 EACH MED..PAD TP PRN (23:45)
[2017-05-07] MEDS ORDERED: PROMETHAZINE HCL 25 MG SUPP.RECT PR PRN (23:45)
[2017-05-07] MEDS ORDERED: ACETAMINOPHEN WITH CODEINE #3 TABLET PO PRN (23:45)
[2017-05-07] MEDS ORDERED: DIPH/PERTUSS(ACELL)/TETANUS VAC/PF 0.5 ML SYR (>=10YO) IM PRN (23:45)
[2017-05-07] MEDS ORDERED: DIPHENHYDRAMINE HCL 25 MG CAPSULE PO PRN (23:45)
[2017-05-07] MEDS ORDERED: MAGNESIUM HYDROXIDE SUSP 30 ML UDCUP PO PRN (23:45)
[2017-05-07] MEDS ORDERED: PSEUDOEPHEDRINE HCL 30 MG TABLET PO PRN (23:45)
[2017-05-07] MEDS ORDERED: MISOPROSTOL 0.2 MG TABLET PR PRN (23:45)
[2017-05-07] MEDS ORDERED: PROMETHAZINE HCL 25 MG TABLET PO PRN (23:45)
[2017-05-07] MEDS ORDERED: PROMETHAZINE HCL INJ 25 MG/1 ML VIAL IV PRN (23:45)
[2017-05-07] MEDS ORDERED: MEASLES,MUMPS&RUBELLA VACC/PF 0.5 ML VIAL SUBCUT PRN (23:45)
[2017-05-07] MEDS ORDERED: ZOLPIDEM TARTRATE 5 MG TABLET PO PRN (23:45)
[2017-05-07] MEDS ORDERED: BENZOCAINE/MENTHOL AEROSOL SPRAY 56 ML TOP PRN (23:45)
[2017-05-07] MEDS ORDERED: NA PHOS,M-B/NA PHOS,DI-BA (ADULT) 133 ML ENEMA PR PRN (23:45)
[2017-05-07] MEDS ORDERED: DIBUCAINE 1% OINTMENT 28 GM TP PRN (23:45)
[2017-05-08] MEDS ORDERED: OXYTOCIN 10 UNIT/ML VIAL ONE (00:44)
[2017-05-08] MEDS ORDERED: ONDANSETRON HCL INJ/PF 4 MG/2 ML SDV ONE (00:53)
--- NOTE | 2017-05-08 01:08 | Warning Signs in Babies ---
VOD Warning Signs Datetime Report Generated by [facility]: 05/08/2017 01:07 VOD#[id number] -Warning Signs in Babies: Viewed with Parent(s)/Family (12/22/2016 20:14:Sonya Vela RN)
[2017-05-08] MEDS ORDERED: ONDANSETRON HCL INJ/PF 4 MG/2 ML SDV IV ONE (01:30)
--- NOTE | 2017-05-08 01:34 | Delivery Summary ---
Del Sum A-C Datetime Report Generated by CPN: 05/08/2017 01:33 DELIVERY PERSONNEL DELIVERY PERSONNEL: [id number] Delivery Doctor:: Madelaine Carlisle MD Labor and Delivery Nurse:: Sonya Vela RN (Annotations: Data stored by KRIS on behalf of user) Labor and Delivery Nurse:: Blanche Juares RN House Painter/BREAST BUFFER: Rama Yoder CNA MATERNAL INFORMATION Delivery Anesthesia: Epidural; Pudendal Medications After Delivery: Pitocin Bolus-Please Comment Estimated Blood Loss (ml): 350 Maternal Complications: None Provider Comments: Pudendal block performed as epidural had not set up yet. Uncomplicated Pudendal block. VMI delivered in LEONIE presentation with loose nuchal cord easily reduced. Shoulders and body delivered without difficulty. Cord doubly clamped and cut and to maternal abdomen for NRP. Placenta delivered intact spontaneously. FF at U. minimal uterine atony resolved with Cytotec 1000mcg NM. Good hemostasis after repair of 1st degree perineal laceration. Mother and baby stable upon provider leaving the room. Weight and apgars pending. LABOR SUMMARY EDC: 05/06/2017 00:00 No. Babies in Womb: 1 Attempted: No Labor Anesthesia: Epidural LABOR INFORMATION Reason for Induction: Other Reason for Induction- Other: Elective Onset of Labor: 05/07/2017 21:06 Complete Dilatation: 05/07/2017 23:00 Oxytocin: Induction Group B Beta Strep: Negative Antibiotics # of Doses: 0 Antibiotics Time of Last Dose: N/A Name of Antibiotic Given: N/A Steroids Given: None Reason Steroids Not Administered: Not Applicable MEMBRANES Membranes Rupture Method: Artificial Rupture of Membranes: 05/07/2017 21:06 Length of Rupture (hr): 2.18 Amniotic Fluid Color: Clear Amniotic Fluid Amount: Small Amniotic Fluid Odor: Normal STAGES OF LABOR Stage 1 hr: 1 Stage 1 min: 54 Stage 2 hr: 0 Stage 2 min: 17 Stage 3 hr: 0 Stage 3 min: 3 Total Time in Labor hr: 2 Total Time in Labor min: 14 VAGINAL DELIVERY Episiotomy: None Laceration #1: Perineal Laceration Extension #1: First Degree Laceration Repair: Yes Laceration Repair Note: 1st degree perineal laceration repaired in usual fahsion. Good hemostasis Sponge Count Correct: N/A Sharps Count Correct: Yes CSECTION DELIVERY Primary Indication: N/A Secondary Indication: N/A CSection Incidence: N/A Labor: N/A Elective: N/A CSection Incision: N/A BABY A INFORMATION Infant Delivery Date/Time: 05/07/2017 23:17 Method of Delivery: Vaginal Born in Route : No : N/A Forceps: N/A Vacuum Extraction: N/A Shoulder Dystocia : No PRESENTATION/POSITION BABY A Presentation: Cephalic Cephalic Presentation: Vertex Vertex Position: Left Occipital Anterior Breech Presentation: N/A PLACENTA INFORMATION BABY A Placenta Delivery Time : 05/07/2017 23:20 Placenta Method of Delivery: Spontaneous Placenta Status: Delivered SCORES BABY A Heart Rate 1 min: >100 bpm Resp Effort 1 min: Good Cry Reflex Irritability 1 min: Cough or Sneeze or Pulls Away Muscle Tone 1 min: Active Motion Color 1 min: Blue/Pale SCORE 1 MIN: 8 Heart Rate 5 min: >100 bpm Resp Effort 5 min: Good Cry Reflex Irritability 5 min: Cough or Sneeze or Pulls Away Muscle Tone 5 min: Active Motion Color 5 min: Body [employer], Extremities Blue SCORE 5 MIN: 9 INFORMATION BABY A Gestational Age at Delivery: 40.1 Gestational Status: Full Term- 39- 40.6 Weeks Outcome : Liveborn Infant Condition : Stable Sex: Male IDENTIFICATION BABY A Infant Verification Date/Time: 05/07/2017 23:23 ID Band Number: [id number] Mother's Name Verified: Yes Infant RN Verifying Infant: Alo WardVENKAT Additional Verifying Personnel: Anibal Martinez CNA/ WEIGHT/LENGTH BABY A Infant Birthweight (gm): 3826 Weight (lb): 8 Infant Weight (oz): 7 Length (in): 20.00 Length (cm): 50.80 CORD INFORMATION BABY A No. Cord Vessels: 3 Nuchal Cord : Around Neck x1, Loose Cord Blood Taken: Yes-For Eval (Mom's Blood Type - or O+) Suction: Mouth; Nose ASSESSMENT BABY A Infant Complications: None Physical Findings at Delivery: Molding of the Head Infant Respirations: Appears Normal Skin to Skin: Yes Skin to Skin Time (min): 50 Applied Researcher/ALS Called : No Care By: Michele CaceresVENKAT fisher Transferred To: Remains with Mother BABY B INFORMATION : N/A SIGNATURES Signature: with User ID: [email or web address]
--- NOTE | 2017-05-08 02:20 | Admission Physical ---
Datetime Report Generated by CPN: 05/08/2017 02:20 CURRENT ADMISSION Chief Complaint: Uterine Contractions Indication for Induction: Other Indication for Induction: Term, Intrauterine ; No Active Labor Indication for Induction- Other: Elective IOL at 40wks due to advanced cervical dilation Admit Plan: Admit to Unit; Initiate Labor Induction Protocol ALLERGIES Medication Allergies: No Medication Allergies: No Known Allergies (05/07/2017) Medication Allergies: No Known Allergies (03/19/2017) Medication Allergies: No Known Allergies (12/22/2016) Medication Allergies: No Known Allergies (07/30/2016) Latex: No Latex Allergies Food Allergies: N/A Environmental Allergies: N/A OBSTETRICAL HISTORY EDC: 05/06/2017 00:00 EDC: 05/06/2017 00:00 : 3 Para: 1 Term: 1 : 0 SAB: 1 IAB: 0 Ectopic: 0 Livin Cesareans: 0 VBACs: 0 Multiple Births: 0 Gestational Diabetes: No Rh Sensitization: No Incompetent Cervix: No KENDALL: No Infertility: No ART Treatment: No Uterine Anomaly: No IUGR: No Hx Previous C/S: No Macrosomia: No Hx Loss/Stillborn: No PIH: No Hx : No Placenta Previa/Abruption: No Depression/PP Depression: Yes PTL/PROM: No Post Hemorrhage: No Current Procedures: Ultrasound; NST Obstetrical History Comments: G1 - 2010 - SAB G2- 2011- 8 lb 2 oz Female 40.1 wks G3 - current SEE RECORDS Alcohol: No Marijuana : No Cocaine: No Other Illicit Drugs: No Cigarettes: Former Smoker. 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 Surgery: No Heart Disease: No Hosp/Surgery: Yes Autoimmune Disorder: No Anesthetic Complications: No Kidney Disease: Yes Abnormal Pap Smear: Yes Neuro/Epilepsy: No Psychiatric Disorders: Yes Other Medical Diseases: No Hepatitis/Liver Disease: No Significant Family History: No Varicosities/Phlebitis: No Trauma/Violence : No Thyroid Dysfunction: No Medical History Comments: dx with depression and anxiety; hospitalized for childbirth INFECTIOUS HISTORY Gonorrhea: No Genital Herpes: No Chlamydia: No Tuberculosis: No Syphilis: No Hepatitis: No HIV/AIDS Exposure: No Rash or Viral Illness: No HPV: No PHYSICAL EXAM General: Normal HEENT: Normal Neurologic: Normal Thyroid: Deferred Heart: Normal Lungs: Normal Breast: Deferred Back: Normal Abdomen: Normal Genitourinary Exam: Normal Extremities: Normal DTRs: Normal Pelvic Type: Adequate Physical Exam Comments: pelvis proven to 8#2oz Vital Signs: Reviewed; Within Normal Limits VAGINAL EXAM Dilatation: 5 Dilatation: 4 Effacement: 75 Effacement: 70 Station: -1 Station: -2 Contraction Comments: irreg MEMBRANES Membranes: Intact FETUS A EGA: 40.1 Monitoring: External US FHR- Baseline: 150 Variability: Moderate 6-25bpm Accelerations: 15X15 Decelerations: None FHR Category: Category I Presentation: Vertex Admit Comment: 26yo at 40+1ega with advanced cervical dilation and irregular ctx. Cvx 4-5/70/-2/soft/slightly posterior, vertex presentation. Reviewed with pt since seeing L_D for care that would recommend Elective IOL due to advanced cervical dilation and post DEYSI. Pelvis proven to 8#2oz. Son score 8 and very favorable. EFW 3213g (7#1oz). Reviewed plan of care and admit for pitocin and then AROM when approp. ANticipate PLANS FOR LABOR AND DELIVERY Labor and Delivery: None Pain Management: Epidural Feeding Preference: Formula Benefit of Breast Feed Discussed: Yes Circumcision: Yes INFORMED CONSENT Informed Consent Obtained: Vaginal Delivery; Induction of Labor; Risks, Benefits and Alternatives Discussed Informed Consent Obtained: Vaginal Delivery; Induction of Labor; Risks, Benefits and Alternatives Discussed Signature: with User ID: [email or web address]
[2017-05-08] MEDS: ACETAMINOPHEN WITH CODEINE #3 TABLET PO PRN (02:43)
[2017-05-08] MEDS: IBUPROFEN 800 MG TABLET PO SCH ×3 (06:01→21:05)
[2017-05-08 07:33] LABS: HEMATOCRIT 29.1 % (36.0-47.0); HGB HCT DIFFERENCE 0.3; MEAN CORPUSCULAR HGB CONC 33.8 g/dL (32.0-36.0); MEAN CORPUSCULAR VOLUME 89 fl (80-97); RED BLOOD COUNT 3.28 10^6/uL (3.72-5.28); RED CELL DISTRIBUTION WIDTH 13.1 % (11.5-14.0); WHITE BLOOD COUNT 12.5 10^3/uL (4.0-10.5)
[2017-05-08 07:34] LABS: HEMOGLOBIN 9.8 g/dL (12.0-15.5)
[2017-05-08] MEDS: SENNOSIDES/DOCUSATE 8.6-50 MG 1 EACH TABLET PO SCH (09:43)
[2017-05-08] MEDS: FERROUS SULFATE 325 MG TABLET PO SCH ×2 (09:43→18:15)
[2017-05-08] MEDS: DOCUSATE SODIUM 100 MG CAPSULE PO SCH ×2 (09:43→18:16)
[2017-05-08] MEDS: FAMOTIDINE 20 MG TABLET PO SCH ×2 (09:43→21:05)
[2017-05-08] MEDS: PRENATAL VITAMIN W DHA CAPSULE PO SCH (09:43)
--- NOTE | 2017-05-08 10:18 | PDOC PROGRESS REPORT ---
Subjective-OB Subjective: Post Delivery Day: 26 year old. Denies any needs at this time bottlefeeding doing well ff@u-1 mod lochia Physical Exam (OB) Vital Signs: Temp Pulse Resp BP Pulse Ox 98.3 F 87 18 127/71 H 99 05/08/17 07:52 05/08/17 07:52 05/08/17 07:52 05/08/17 07:52 05/08/17 07:52 Intake & Output 05/07/17 05/08/17 05/09/17 06:59 06:59 06:59 Intake Total 125 Balance 125 Weight 95.6 kg - PIH/Pre-Eclampsia Clonus: Negative - Lochia Lochia Amount: Small 10-25 ml Lochia Color: Rubra/Red - Abdomen Description: Tender, Soft, Round Hernia Present: No Fundal Description: Firm, Midline Fundal Height: u/u - u/2 Objective-Diagnostic Laboratory: 05/08/17 07:08 05/07/17 05/07/17 05/07/17 18:00 19:00 19:00 WBC 9.4 RBC 3.97 Hgb 12.0 Hct 35.2 L MCV 89 MCH 30.2 MCHC 33.9 RDW 13.2 Plt Count 157 Seg Neutrophils % 62.3 Lymphocytes % 26.6 Monocytes % 9.5 Eosinophils % 1.1 Basophils % 0.5 Absolute Neutrophils 5.9 Absolute Lymphocytes 2.5 Absolute Monocytes 0.9 Absolute Eosinophils 0.1 Absolute Basophils 0.0 Urine Color YELLOW Urine Appearance CLEAR Urine pH 7.0 Ur Specific [place] 1.012 Urine Protein NEGATIVE Urine Glucose (UA) NEGATIVE Urine Ketones NEGATIVE Urine Blood NEGATIVE Urine Nitrite NEGATIVE Ur Leukocyte Esterase NEGATIVE Urine WBC (Auto) 1 Urine RBC (Auto) 0 Blood Type A NEGATIVE Antibody Screen NEGATIVE 05/08/17 05/08/17 07:08 07:08 WBC 12.5 H RBC 3.28 L Hgb 9.8 L D Hct 29.1 L MCV 89 MCH 30.0 MCHC 33.8 RDW 13.1 Plt Count 130 L Seg Neutrophils % Lymphocytes % Monocytes % Eosinophils % Basophils % Absolute Neutrophils Absolute Lymphocytes Absolute Monocytes Absolute Eosinophils Absolute Basophils Urine Color Urine Appearance Urine pH Ur Specific [place] Urine Protein Urine Glucose (UA) Urine Ketones Urine Blood Urine Nitrite Ur Leukocyte Esterase Urine WBC (Auto) Urine RBC (Auto) Blood Type A NEGATIVE Antibody Screen
[2017-05-09] MEDS: ACETAMINOPHEN WITH CODEINE #3 TABLET PO PRN (02:58)
[2017-05-09] MEDS: IBUPROFEN 800 MG TABLET PO SCH ×2 (05:06→14:40)
[2017-05-09] MEDS: FERROUS SULFATE 325 MG TABLET PO SCH (09:43)
[2017-05-09] MEDS: DOCUSATE SODIUM 100 MG CAPSULE PO SCH (09:43)
[2017-05-09] MEDS: PRENATAL VITAMIN W DHA CAPSULE PO SCH (09:43)
[2017-05-09] MEDS: FAMOTIDINE 20 MG TABLET PO SCH (09:43)
[2017-05-09] MEDS: SENNOSIDES/DOCUSATE 8.6-50 MG 1 EACH TABLET PO SCH (09:44)
--- NOTE | 2017-05-09 11:44 | PDOC DISCHARGE SUMMARY ---
Final Diagnosis Discharge Date: 05/09/17 Discharge Data - Discharge Medication Home Medications: Prenat 115/Iron Fum/Folic/Dss [ 19 Tablet] 1 tab PO DAILY 12/22/16 Valacyclovir HCl [Valtrex] 1 tab PO DAILY 04/28/17 Reason(s) for Admission: Induction of Labor Admission Note: advanced dilation Procedures: NST Intrapartum Procedure(s): Spontaneous Vaginal Delivery Complication(s): Laceration-Perineal Laceration-Degree: 1st - Diagnosis Test Laboratory: Temp Pulse Resp BP Pulse Ox 97.7 F 74 16 121/68 100 05/09/17 07:43 05/09/17 07:43 05/09/17 07:43 05/09/17 07:43 05/09/17 07:43 05/07/17 05/07/17 05/08/17 18:00 19:00 07:08 RBC 3.97 3.28 L Hgb 12.0 9.8 L D Hct 35.2 L 29.1 L Urine Opiates Screen NEGATIVE - Discharge information/Instructions Discharge Activity: Balance Activity w/Rest, Pelvic Rest Discharge Diet: Regular Disposition: HOME, SELF-CARE Follow up with: [facility] in: 4, Weeks
[2017-05-09 12:12] VITALS: BP 136/78
== END 2017-05-09 15:00 | disposition home or self-care (01) | DRG 775 ==
LOC: LC 17:51 → LR 18:51 → 2S 05-08 02:11
PROVIDERS: ADMIT Student in an Organized Health Care Education/Training Program; ATTEND Student in an Organized Health Care Education/Training Program
PROC: 10E0XZZ Delivery of Products of Conception, External Approach (ICD-10-PCS; principal; 2017-05-07)
PROC: 4A1HXCZ Monitoring of Products of Conception, Cardiac Rate, External Approach (ICD-10-PCS; 2017-05-07)
DX: O69.81X0 Labor and delivery complicated by cord around neck, without compression, not applicable or unspecified (principal); O99.344 Other mental disorders complicating childbirth; F32.9 Major depressive disorder, single episode, unspecified; O62.2 Other uterine inertia; O70.0 First degree perineal laceration during delivery; Z3A.40 40 weeks gestation of pregnancy; Z87.891 Personal history of nicotine dependence; Z37.0 Single live birth
CPT/HCPCS: 36415; 80307; 81001; 85025; 85027; 85461; 86592; 86701; 86850; 86900; 86901; 88307; 94760; J2370; J2405; J2590; J3010; J3490

== ENCOUNTER 2019-05-22 20:43 | Emergency (ER) | payer OTHER, MEDICAID ==
[2019-05-22 21:09] VITALS: BP 131/78
[2019-05-22] MEDS ORDERED: AMOXICILLIN TR/POT CLAVULANATE 500-125 MG TAB PO ONE (22:24)
[2019-05-22] MEDS ORDERED: AMOXICILLIN TRIHYD 250 MG CAPSULE PO ONE (22:24)
[2019-05-22] MEDS ORDERED: IBUPROFEN 800 MG TABLET PO ONE (22:24)
--- NOTE | 2019-05-22 22:29 | ER Document Report ---
HPI - HPI Time Seen by Provider: 05/22/19 22:13 Pain Level: 4 Context: Patient is a 28-year-old female who presents emergency department with a chief complaint of left ear pain and sinus pressure. Patient reports she has been battling upper respiratory infection with cough for the past 2 weeks. Patient reports that the cough is actually starting to get better but she has had a significant nasal congestion and sinus pressure. Patient reported sinus pressure is worse with movement and when bending over. Patient reports she also feels like she is developing a left ear infection. Patient reports she does have a history of multiple ear infections. Patient reports she has been taking Tylenol as needed for her pain. Patient reports she feels like her left ear is muffled. Patient reports her son was recently diagnosed with RSV last week. Patient reports that she has been doing [id number] medications such as allergy medications and Sudafed without much relief. Patient denies nausea, vomiting or diarrhea. - REPRODUCTIVE Reproductive: DENIES: : Past Medical History - General Information source: Patient - Social History Smoking Status: Current Every Day Smoker Chew tobacco use (# tins/day): No Frequency of alcohol use: None Drug Abuse: None Lives with: Family Family History: CAD, Hyperlipidemia, Hypertension, Malignancy, Thyroid Disfunction Patient has suicidal ideation: No Patient has homicidal ideation: No - Past Medical History Cardiac Medical History: Reports: Hx Heart Murmur Pulmonary Medical History: Reports: Hx Asthma, Hx Bronchitis, Hx Pneumonia EENT Medical History: Reports: None Neurological Medical History: Reports: Hx Migraine Endocrine Medical History: Reports: None Renal/ Medical History: Reports: Hx Kidney Stones. Denies: Hx Peritoneal Dialysis Malignancy Medical History: Reports: None GI Medical History: Reports: None Musculoskeletal Medical History: Reports Hx Musculoskeletal Deformity Skin Medical History: Reports None Psychiatric Medical History: Reports: Hx Anxiety, Hx Attention Deficit Hype ractivity Disorder, Hx Bipolar Disorder, Hx Depression Traumatic Medical History: Reports: None Infectious Medical History: Reports: None Past Surgical History: Reports: Hx Tonsillectomy - Immunizations Immunizations up to date: No Hx Diphtheria, Pertussis, Tetanus Vaccination: No Vertical Provider Document - CONSTITUTIONAL Agree With Documented VS: Yes Exam Limitations: No Limitations General Appearance: No Apparent Distress - INFECTION CONTROL TRAVEL OUTSIDE OF THE [place] IN LAST 30 DAYS: No - HEENT HEENT: Atraumatic, Normal ENT Exam, Normocephalic, PERRLA Notes: Patient does have left tragus tenderness with palpation without external edema or erythema. There is no mastoid tenderness. Patient's TM is slightly erythematous without bulging. Does appear that the patient has a small effusion behind the TM. Patient's right ears unremarkable and does not reveal any edema or erythema. There is no tragus tenderness or mastoid tenderness. Patient's right TM is pearly phan and able to easily visualize landmarks. Patient has bilateral turbinates that are edematous, no rhinorrhea, patient has tenderness to frontal and maxillary sinuses. - NECK Neck: Normal Inspection Notes: No cervical lymphadenopathy noted. - RESPIRATORY Respiratory: Breath Sounds Normal, No Respiratory Distress - CARDIOVASCULAR Cardiovascular: Regular Rate, Regular Rhythm - GI/ABDOMEN Gastrointestinal: Abdomen Soft, Abdomen Non-Tender, Normal Bowel Sounds - MUSCULOSKELETAL/EXTREMETIES Musculoskeletal/Extremeties: FROM, Non-Tender - NEURO Level of Consciousness: Awake, Alert, Appropriate - DERM Integumentary: Warm, Dry, No Rash Course - Re-evaluation Re-evalutation: 05/22/19 22:29 Since the patient has been battling sinus pressure and symptoms for over 2 weeks I will treat her for sinusitis. Patient will be given her first dose of Augmentin here in the emergency department. Patient nontoxic-appearing. Patient continue using [id number] medications. - Vital Signs Vital signs: Temp Pulse Resp BP Pulse Ox 98.2 F 111 H 20 131/78 H 99 05/22/19 21:09 05/22/19 21:09 05/22/19 21:09 05/22/19 21:09 05/22/19 21:09 Discharge - Discharge Clinical Impression: Sinusitis Qualifiers: Sinusitis location: maxillary Chronicity: acute Recurrence: not specified as recurrent Qualified Code(s): J01.00 - Acute maxillary sinusitis, unspecified URI (upper respiratory infection) Qualifiers: URI type: unspecified viral URI Qualified Code(s): J06.9 - Acute upper respiratory infection, unspecified Condition: Stable Disposition: HOME, SELF-CARE Additional Instructions: *Today was in the emergency department for left ear pain and sinus pressure. Since you have had the symptoms for over 2 weeks I am prescribing you Augmentin for sinusitis. At this time he did not have a left ear infection but the antibiotics will also help with this if you are developing 1. Please continue take Tylenol and ibuprofen as needed for pain or fever. Please follow-up with your primary care physician for reevaluation. Please return the emergency department if your symptoms worsen such as severe headache, high fever, stiff neck or a rash. Sinusitis You have sinusitis, an infection of the sinus cavities of the face. The sinuses are air-filled chambers which open into the inside of the nose. Bact eria and pus fill a sinus, causing pain, drainage, and fever. Sinusitis is treated with antibiotics. Often, expectorants (to thin the sinus mucous) or decongestants (to reduce swelling) are prescribed as well. Healing requires seven to 10 days. Avoid chemical fumes, pollens, dusts, and smoke (especially cigarette smoke). Keep the air humidified in your bedroom and work area and take plenty of liquids by mouth. This condition can be serious if the infection spreads. If your symptoms worsen, or if you develop severe headache, high fever, stiff neck, or a rash, you must call the doctor or return for re-evaluation. Prescriptions: Amox Tr/Potassium Clavulanate [Augmentin 875-125 Tablet] 1 tab PO BID 10 Days tablet Referrals: KRISSY BELL MD [Primary Care Provider] - Follow up as needed
== END 2019-05-22 22:40 | disposition home or self-care (01) ==
LOC: ER 20:43
DX: J01.00 Acute maxillary sinusitis, unspecified (principal); J06.9 Acute upper respiratory infection, unspecified; H92.02 Otalgia, left ear; R51 Headache; R05 Cough; R09.81 Nasal congestion; F17.200 Nicotine dependence, unspecified, uncomplicated; J45.909 Unspecified asthma, uncomplicated
CPT/HCPCS: 99283; J3490